=== PATIENT | female | born 1950 | race American Indian/Alaskan Native ===

== ENCOUNTER 2018-08-03 13:36 | Emergency (ER) | payer OTHER ==
--- NOTE | 2018-08-03 14:08 | Emergency Department Report ---
HPI - General Chief Complaint: Allergic Reaction Time Seen by Provider: 08/03/18 14:02 - HPI HPI: 67 yo male with a past medical history asthma, hypertension, hyperlipidemia complain of shortness of breath while at the nail salon. Patient states she is sensitive to the nail gel and during her pedicure she requested apple cider vinegar to be added to her foot bath. Once the architecture technician placed 2 unknown dissolvable tablets in the the solution, patient began to feel shortness of breath and had trouble breathing. She attempted to go outside to get air without any improvement. EMS arrived and provided Solu-Medrol, Benadryl, and albuterol with improvement in symptoms. Patient is currently feeling better and back to baseline. She denies throat tightness, rash, or previous allergic reaction to nail salon however, she has never used apple cider vinegar with the dissolvable tablets in the past. Patient has been seen by administrative support assoc and states she is allergic to mold, dust, and other allergens. ED Past Medical Hx - Past Medical History Hx Hypertension: Yes Hx Asthma: Yes Additional medical history: Hyperlipidemia - Social History Smoking Status: Never Smoker - Medications Home Medications: Home Medications Medication Instructions Recorded Confirmed Last Taken Type EPINEPHrine [Epipen] 0.3 mg IJ PRN PRN #1 auto.injct 08/03/18 Unknown Rx Famotidine [Pepcid] 20 mg PO BID #10 tablet 08/03/18 Unknown Rx diphenhydrAMINE [Benadryl CAP] 25 mg PO Q6HR PRN #20 capsule 08/03/18 Unknown Rx predniSONE [Deltasone] 40 mg PO QDAY #5 tab 08/03/18 Unknown Rx ED Review of Systems ROS: Stated complaint: ALLERGIC REACTION Other details as noted in HPI Comment: All other systems reviewed and negative Physical Exam - Physical Exam Vital Signs: Vital Signs 08/03/18 13:49 Pulse Rate 82 Respiratory 19 Rate Blood Pressure 160/110 [Left] O2 Sat by Pulse 100 Oximetry Physical Exam: General: No limitations, patient is alert in no acute distress Head exam: Atraumatic, normocephalic Eyes exam: Normal appearance, pupils equal reactive to light, extraocular movements intact ENT: Moist mucous membrane, no posterior airway swelling Neck exam: Normal inspection, full range of motion, no meningismus nontender Respiratory exam: Clear to auscultation bilateral, no wheezes, rales, crackles Cardiovascular: Normal rate and rhythm, normal heart sounds Abdomen: Soft, nondistended, and nontender, with normal bowel sounds, no rebound, or guarding Extremity: Full range of motion normal inspection no deformity Back: Normal Inspection, full range of motion, no tenderness Neurologic: Alert, oriented x3, cranial nerves intact, no motor or sensory d eficit Psychiatric: normal affect, normal mood Skin: Warm, dry, intact ED Course Vital Signs 08/03/18 13:49 Pulse Rate 82 Respiratory 19 Rate Blood Pressure 160/110 [Left] O2 Sat by Pulse 100 Oximetry - Reevaluation(s) Reevaluation #1: 08/03/18 16:37 pt asymptomatic during entire ed stay. pt will be d/[facility]. ED Medical Decision Making - Medical Decision Making pt asx since receiving meds per ems. will be d/[facility]. did not receive epi - Differential Diagnosis allergic reaction, asthma attack, hypertensive emergency Critical Care Time: No Critical care attestation.: If time is entered above; I have spent that time in minutes in the direct care of this critically ill patient, excluding procedure time. ED Disposition Clinical Impression: Allergic reaction Disposition: DC-01 TO HOME OR SELFCARE Is pt being admited?: No Does the pt Need Aspirin: No Condition: Stable Instructions: Allergies (ED) Additional Instructions: Take the medication as prescribed. Follow up with your doctor or the clinic/doctor provided. Return if symptoms worsen as indicated by your discharge instructions Prescriptions: diphenhydrAMINE [Benadryl CAP] 25 mg PO Q6HR PRN #20 capsule PRN Reason: Allergy Symptoms EPINEPHrine [Epipen] 0.3 mg IJ PRN PRN #1 auto.injct PRN Reason: Anaphylaxis Famotidine [Pepcid] 20 mg PO BID #10 tablet predniSONE [Deltasone] 40 mg PO QDAY #5 tab Referrals: PRIMARY CAREMD [Primary Care Provider] - 3-5 Days SG MILLER MD [Staff Physician] - 3-5 Days Time of Disposition: 16:41
== END 2018-08-03 17:00 | disposition home or self-care (01) ==
LOC: ED 13:36
CPT/HCPCS: 99283